=== PATIENT | male | born 1945 | race Two or more races ===

== ENCOUNTER 2017-05-02 16:28 | Inpatient (IN) | payer MEDICARE, MEDICAID ==
[~2017-05-02] VITALS: Ht 162.6 cm; Wt 63.3 kg
[2017-05-02] MEDS ORDERED: SODIUM CHLORIDE 0.9% 1,000 ML IV ONE (17:51)
[2017-05-02 18:44] LABS: Basophils # (auto) 0.1 uL; Basophils % (auto) 0.9 % (0.0-2.0); Eosinophils # (auto) 0.2 uL; Eosinophils % (auto) 1.9 % (0.0-7.0); Hematocrit 28.2 % (41.0-53.0); Hemoglobin 9.4 g/dL (13.5-17.5); Lymphocytes # (auto) 0.6 uL; Lymphocytes % (auto) 6.5 % (10.0-50.0); Mean Corpuscular Hemoglobin 30.1 pg (28.0-32.0); Mean Corpuscular Hgb Conc. 33.4 g/dL (32.0-36.0); Mean Corpuscular Volume 90.3 fL (80.0-100.0); Monocytes # (auto) 0.6 uL; Monocytes % (auto) 6.2 % (0.0-12.0); Neutrophils # (auto) 8.3 uL; Neutrophils % (auto) 84.5 % (37.0-80.0); Platelet Count (auto) 167 10^3/uL (140-450); Red Blood Cells 3.12 10^6/uL (4.5-5.90); White Blood Cell 9.8 10^3/uL (4.4-10.8)
[2017-05-02 19:02] LABS: INR 1.01 (0.9-1.15); Partial Thromboplastin Time 28.8 sec (22.64-33.71)
[2017-05-02 19:03] LABS: Alanine Aminotransferase 26 U/L (16-61); Albumin 3.2 g/dL (3.4-5.0); Alkaline Phosphatase 129 U/L (45-117); Anion Gap 16 (5-15); Aspartate Aminotransferase 24 U/L (15-37); Bilirubin, Total 0.4 mg/dL (0.2-1.0); Carbon Dioxide 13 mmol/L (21-32); Chloride 107 mmol/L (98-107); GFR African American 7 mL/min; GFR Non-African American 6 mL/min; Glucose 152 mg/dL (74-106); Potassium 4.4 mmol/L (3.5-5.1); Sodium 136 mmol/L (136-145)
[2017-05-02 19:41] LABS: Blood Urea Nitrogen 97 mg/dL (7-18); Calcium 5.2 mg/dL (8.5-10.1)
[2017-05-02] MEDS ORDERED: CALCIUM GLUC 4.65meq/50ml D5AE 50 ML IV ONE (20:00)
[2017-05-02] MEDS ORDERED: HYDROcodone-ACET 5/325MG TAB PO PRN (21:30)
[2017-05-02] MEDS ORDERED: ACETAMINOPHEN 500 MG TAB PO PRN (21:30)
[2017-05-02] MEDS ORDERED: TEMAZEPAM 15 MG CAP PO PRN (21:30)
[2017-05-02] MEDS ORDERED: ONDANSETRON HCL 4 MG/2 ML VIAL IV PRN (21:30)
[2017-05-02 23:45] VITALS: BP 161/65
[2017-05-03] VITALS (7 sets, daily range): BP systolic 135–161; BP diastolic 63–84
[2017-05-03 06:21] LABS: Basophils # (auto) 0.1 uL; Hematocrit 24.5 % (41.0-53.0); Hemoglobin 8.2 g/dL (13.5-17.5); Lymphocytes # (auto) 1.2 uL; Mean Corpuscular Hgb Conc. 33.6 g/dL (32.0-36.0); Monocytes # (auto) 0.7 uL; Monocytes % (auto) 8.5 % (0.0-12.0); Neutrophils # (auto) 6.2 uL; Nucleated Red Blood Cells % 0.1 %
[2017-05-03 06:24] LABS: Basophils % (auto) 0.8 % (0.0-2.0); Eosinophils # (auto) 0.2 uL; Eosinophils % (auto) 2.9 % (0.0-7.0); Lymphocytes % (auto) 13.9 % (10.0-50.0); Mean Corpuscular Hemoglobin 30.4 pg (28.0-32.0); Mean Corpuscular Volume 90.5 fL (80.0-100.0); Neutrophils % (auto) 73.9 % (37.0-80.0); Red Blood Cells 2.71 10^6/uL (4.5-5.90); Red Cell Distribution Width 15.5 % (11.8-14.3); White Blood Cell 8.4 10^3/uL (4.4-10.8)
[2017-05-03 06:25] LABS: Platelet Count (auto) 148 10^3/uL (140-450)
[2017-05-03 06:34] LABS: BUN/Creatinine Ratio 10.6
[2017-05-03 06:37] LABS: Calcium 5.3 mg/dL (8.5-10.1)
[2017-05-03] MEDS ORDERED: SODIUM CHLORIDE 0.9% 1,000 ML IV SCH (09:30)
[2017-05-03] MEDS ORDERED: CALCIUM GLUC 4.65meq/50ml D5AE 50 ML IV ONE (10:00)
[2017-05-03] MEDS: SODIUM BICARBONATE 50ML VIAL 100 ML in D5W 5% 1,000 ML IV SCH ×2 (12:15→23:15)
[2017-05-03] MEDS: CALCIUM W/VIT D (600MG/400IU) TAB PO SCH ×2 (13:01→17:42)
[2017-05-03] MEDS: amLODIPine BESYLATE 5 MG TAB PO SCH (13:01)
[2017-05-03] MEDS: CALCIUM ACETATE 667 MG CAP PO SCH ×2 (13:02→17:42)
[2017-05-03 13:29] LABS: Magnesium 2.1 mg/dL (1.6-2.6); Phosphorus 8.7 mg/dL (2.5-4.90)
[2017-05-03 16:11] LABS: Urine Bacteria NONE SEEN /hpf (None Seen); Urine Blood 1+ /uL (Negative); Urine WBC 1 /hpf (0 - 3)
[2017-05-03 16:22] LABS: Protein, Urine 231.8 mg/dL (0.0-11.9)
[2017-05-04 05:00] VITALS: BP 141/65
[2017-05-04 05:41] LABS: Albumin 2.7 g/dL (3.4-5.0); BUN/Creatinine Ratio 10.5; Bilirubin, Total 0.3 mg/dL (0.2-1.0); Potassium 3.9 mmol/L (3.5-5.1); Total Protein 6.8 g/dL (6.4-8.2)
[2017-05-04 05:45] LABS: Calcium 5.4 mg/dL (8.5-10.1)
[2017-05-04 08:00] VITALS: BP 144/78
[2017-05-04 09:00] VITALS: BP 144/78
[2017-05-04] MEDS: CALCIUM W/VIT D (600MG/400IU) TAB PO SCH ×2 (09:24→17:54)
[2017-05-04] MEDS: B-COMPLEX W/ C & FOLIC ACID(NEPHROVITE TAB) PO SCH (09:25)
[2017-05-04] MEDS: CALCIUM ACETATE 667 MG CAP PO SCH ×3 (09:25→17:54)
[2017-05-04] MEDS: amLODIPine BESYLATE 5 MG TAB PO SCH (09:26)
[2017-05-04] MEDS ORDERED: CALCIUM GLUC 4.65meq/50ml D5AE 50 ML IV ONE (10:30)
[2017-05-04] MEDS: SODIUM BICARBONATE 50ML VIAL 100 ML in D5W 5% 1,000 ML IV SCH ×2 (10:53→21:50)
[2017-05-04] MEDS: SEVELAMER 800 MG TAB PO SCH ×2 (11:58→17:54)
[2017-05-04 13:00] VITALS: BP 134/69
[2017-05-04 20:00] VITALS: BP 141/61
[2017-05-04 21:49] VITALS: BP 141/69
[2017-05-05 05:20] VITALS: BP 145/74
[2017-05-05 07:09] LABS: Albumin 2.6 g/dL (3.4-5.0); BUN/Creatinine Ratio 10.5; Bilirubin, Total 0.4 mg/dL (0.2-1.0); Potassium 3.8 mmol/L (3.5-5.1); Total Protein 6.6 g/dL (6.4-8.2)
[2017-05-05 07:14] LABS: Calcium 5.4 mg/dL (8.5-10.1)
[2017-05-05 08:00] VITALS: BP 145/74
[2017-05-05] MEDS: CALCIUM W/VIT D (600MG/400IU) TAB PO SCH ×2 (08:25→18:34)
[2017-05-05] MEDS: SEVELAMER 800 MG TAB PO SCH ×3 (08:25→18:34)
[2017-05-05] MEDS: CALCIUM ACETATE 667 MG CAP PO SCH ×3 (08:25→18:34)
[2017-05-05] MEDS: SODIUM BICARBONATE 50ML VIAL 100 ML in D5W 5% 1,000 ML IV SCH ×2 (08:28→19:40)
[2017-05-05 09:00] VITALS: BP 135/69
[2017-05-05] MEDS: amLODIPine BESYLATE 5 MG TAB PO SCH (09:52)
[2017-05-05] MEDS: B-COMPLEX W/ C & FOLIC ACID(NEPHROVITE TAB) PO SCH (09:52)
[2017-05-05 10:44] LABS: Hepatitis B Surface Antigen Negative (Negative)
[2017-05-05 11:09] LABS: Hepatitis C Antibody Negative (Negative)
[2017-05-05] MEDS ORDERED: EPOETIN ALFA 10,000 UNIT/1 ML VIAL SC ONE (11:30)
[2017-05-05] MEDS: Boost Glucose Control 8 Ounces PO SCH ×2 (12:00→18:34)
[2017-05-05] MEDS: SODIUM FERR GLUC 62.5MG/5ML 125 MG in SODIUM CHL 0.9% 100 ML IV SCH (12:23)
[2017-05-05 13:00] VITALS: BP 140/70
[2017-05-05 17:00] VITALS: BP 135/74
[2017-05-05 21:30] VITALS: BP 120/58
[2017-05-06 05:55] LABS: Basophils # (auto) 0.1 uL; Eosinophils # (auto) 0.2 uL; Neutrophils # (auto) 5.2 uL; White Blood Cell 7.4 10^3/uL (4.4-10.8)
[2017-05-06 05:58] LABS: Basophils % (auto) 0.8 % (0.0-2.0); Eosinophils % (auto) 3.4 % (0.0-7.0); Hematocrit 23.6 % (41.0-53.0); Hemoglobin 8.3 g/dL (13.5-17.5); Lymphocytes # (auto) 0.9 uL; Lymphocytes % (auto) 11.5 % (10.0-50.0); Mean Corpuscular Hemoglobin 30.4 pg (28.0-32.0); Mean Corpuscular Volume 86.7 fL (80.0-100.0); Monocytes % (auto) 13.6 % (0.0-12.0); Neutrophils % (auto) 70.7 % (37.0-80.0); Platelet Count (auto) 131 10^3/uL (140-450); Red Blood Cells 2.72 10^6/uL (4.5-5.90); Red Cell Distribution Width 14.7 % (11.8-14.3)
[2017-05-06] MEDS: SODIUM BICARBONATE 50ML VIAL 100 ML in D5W 5% 1,000 ML IV SCH ×2 (06:05→17:15)
[2017-05-06 06:29] LABS: Albumin 2.6 g/dL (3.4-5.0); Bilirubin, Total 0.4 mg/dL (0.2-1.0); Potassium 3.9 mmol/L (3.5-5.1); Total Protein 6.5 g/dL (6.4-8.2)
[2017-05-06 06:37] LABS: Calcium 5.5 mg/dL (8.5-10.1)
[2017-05-06 08:00] VITALS: BP 144/71
[2017-05-06] MEDS: CALCIUM ACETATE 667 MG CAP PO SCH ×2 (08:00→12:00)
[2017-05-06] MEDS: Boost Glucose Control 8 Ounces PO SCH ×2 (08:00→12:00)
[2017-05-06 09:00] VITALS: BP 144/71
[2017-05-06] MEDS: B-COMPLEX W/ C & FOLIC ACID(NEPHROVITE TAB) PO SCH (10:07)
[2017-05-06] MEDS: CALCIUM W/VIT D (600MG/400IU) TAB PO SCH (10:07)
[2017-05-06] MEDS: amLODIPine BESYLATE 5 MG TAB PO SCH (10:08)
[2017-05-06] MEDS: SEVELAMER 800 MG TAB PO SCH ×2 (10:09→14:53)
[2017-05-06 11:48] VITALS: BP 144/71
[2017-05-06 12:40] VITALS: BP 144/71
[2017-05-06 13:00] VITALS: BP 140/64
[2017-05-06] MEDS: SODIUM FERR GLUC 62.5MG/5ML 125 MG in SODIUM CHL 0.9% 100 ML IV SCH (15:49)
[2017-05-06 17:00] VITALS: BP 130/71
== END 2017-05-06 17:30 | disposition home or self-care (01) | DRG 291 ==
LOC: ER 16:28 → TELE 16:29 → TELE-WESTW 23:45
PROVIDERS: ADMIT Nurse Practitioner Family; ATTEND Internal Medicine
DX: I13.2 Hypertensive heart and chronic kidney disease with heart failure and with stage 5 chronic kidney disease, or end stage renal disease (principal); N18.6 End stage renal disease; E46 Unspecified protein-calorie malnutrition; E11.21 Type 2 diabetes mellitus with diabetic nephropathy; E87.2 Acidosis; E11.65 Type 2 diabetes mellitus with hyperglycemia; I50.43 Acute on chronic combined systolic (congestive) and diastolic (congestive) heart failure; E87.1 Hypo-osmolality and hyponatremia; R55 Syncope and collapse; Z66 Do not resuscitate; D63.1 Anemia in chronic kidney disease; E83.39 Other disorders of phosphorus metabolism; E83.51 Hypocalcemia; E11.22 Type 2 diabetes mellitus with diabetic chronic kidney disease; E78.5 Hyperlipidemia, unspecified; N27.1 Small kidney, bilateral; Z85.528 Personal history of other malignant neoplasm of kidney; Z68.24 Body mass index [BMI] 24.0-24.9, adult
CPT/HCPCS: 36415; 70450; 71045; 76775; 80048; 80053; 81001; 82306; 82550; 82570; 82728; 82962; 83036; 83540; 83550; 83735; 83880; 83970; 84100; 84156; 84300; 84484; 85025; 85610; 85730; 86803; 87340; 93005; 93306; 96361; 96365; J0610; J0885